=== PATIENT | female | born 1950 | race Caucasian/White ===

== ENCOUNTER 2018-11-02 17:19 | Inpatient (IN) | payer MEDICARE, MEDICAID ==
[~2018-11-02] VITALS: Ht 165.1 cm; Wt 90.6 kg
[2018-11-02] MEDS ORDERED: DILTIAZEM 125 MG in SODIUM CHLORIDE 0.9% 100 ML IV SCH ×2 (17:46→19:30)
[2018-11-02] MEDS ORDERED: ENOXAPARIN 100 MG/ML ONE (17:57)
[2018-11-02] MEDS ORDERED: ASPIRIN 81 MG TABLET CHEW ONE (17:57)
[2018-11-02] MEDS ORDERED: DILTIAZEM 5 MG/ML, 5ML ONE (17:57)
[2018-11-02] MEDS ORDERED: ASPIRIN 81 MG TABLET CHEW PO ONE (18:00)
[2018-11-02] MEDS ORDERED: ENOXAPARIN 100 MG/ML SQ SCH (18:00)
[2018-11-02] MEDS ORDERED: DILTIAZEM 5 MG/ML, 5ML IV ONE (18:00)
[2018-11-02] MEDS ORDERED: SODIUM CHLORIDE FLUSH 10ML SYR IVF ONE (18:00)
[2018-11-02 18:14] LABS: BASOPHILS # (AUTO) 0.21 x10^3/uL (0-0.1); BASOPHILS % (AUTO) 2 % (0-1); EOSINOPHILS # (AUTO) 0.35 x10^3/uL (0-0.4); EOSINOPHILS % (AUTO) 3 % (1-7); LYMPHOCYTES # (AUTO) 3.05 x10^3/uL (1-3.4); LYMPHOCYTES % (AUTO) 29 % (22-44); MD NO; MEAN CORPUSCULAR HGB CONC 32.7 g/dL (32.4-35.8); MEAN CORPUSCULAR VOLUME 101.1 fL (80-100); MEAN PLATELET VOLUME 7.7 fL (7.4-10.4); MONOCYTES # (AUTO) 0.75 x10^3/uL (0.2-0.8); MONOCYTES % (AUTO) 7 % (2-9); NEUTROPHILS % (AUTO) 58 % (42-75); PLATELET COUNT 283 x10^3/uL (130-400); RED BLOOD COUNT 4.28 x10^6/uL (3.82-5.3); RED CELL DISTRIBUTION WIDTH 13.7 % (9.6-15.2)
[2018-11-02 18:21] LABS: INTERNATIONAL NORMALIZED RATIO 1.02 (0.93-1.1); PROTHROMBIN TIME 10.7 Seconds (9.6-11.5)
[2018-11-02 18:26] LABS: ALANINE AMINOTRANSFERASE 19 U/L (12-78); ALBUMIN 3.4 g/dL (3.4-5.0); ANION GAP 8 mmol/L (5-15); CALCIUM 8.7 mg/dL (8.5-10.1); CHLORIDE 108 mmol/L (98-107); CREATININE 1.12 mg/dL (0.55-1.02); T4 (THYROXINE) 8.7 mcg/dL (4.8-13.9)
[2018-11-02] MEDS ORDERED: SODIUM CHLORIDE 0.9% 1,000ML IVBOLUS ONE ×2 (18:30→19:30)
[2018-11-02 18:31] LABS: ALKALINE PHOSPHATASE 76 U/L (45-117); BILIRUBIN,TOTAL 0.4 mg/dL (0.2-1.0); TOTAL PROTEIN 7.2 g/dL (6.4-8.2); TROPONIN I < 0.015 ng/mL (0.000-0.045)
[2018-11-02 18:36] LABS: THYROID STIMULATING HORMONE 0.837 mIU/L (0.358-3.740)
--- NOTE | 2018-11-02 18:53 | NUR ---
BP 95/50 AFTER 250 NS
--- NOTE | 2018-11-02 19:17 | NUR ---
LATE NOTE 1750. CARDIZEM DRIP INITIATED AT 10 ML HR. TO BE TITRATED UP TO 18 ML HR TO ACHIEVE HR UNDER 100 BPM.
--- NOTE | 2018-11-02 19:18 | NUR ---
CARDIZEM BACK DOWN TO 10 ML HR DUE TO BP PER MD DIRECTION WITH ANOTHER 500 ML NS BOLUS INITIATED.
[2018-11-02] MEDS ORDERED: ACETAMINOPHEN 325 MG TABLET PO PRN (19:30)
[2018-11-02] MEDS ORDERED: SODIUM CHLORIDE FLUSH 10ML SYR IVF PRN (19:30)
[2018-11-02] MEDS: SODIUM CHLORIDE 0.9% 1,000 ML IV SCH (22:04)
[2018-11-02 22:50] VITALS: BP 102/68
[2018-11-02 23:30] VITALS: BP 93/62
[2018-11-03] MEDS ORDERED: LISI5TAB7 PO (00:43)
[2018-11-03 01:15] VITALS: BP 88/61
[2018-11-03] MEDS ORDERED: SODIUM CHLORIDE 0.9% 1,000ML IVBOLUS ONE (02:00)
[2018-11-03 02:19] VITALS: BP 108/80
[2018-11-03] MEDS: HYDROcodone/APAP 10/325 MG TABLET PO PRN ×5 (02:23→23:12)
[2018-11-03] MEDS: SODIUM CHLORIDE 0.9% 1,000 ML IV SCH ×2 (02:24→10:19)
[2018-11-03 03:35] VITALS: BP 93/55
[2018-11-03] MEDS ORDERED: DIGOXIN 0.25 MG/ML, 2ML IVPush ONE ×4 (04:00→16:00)
[2018-11-03] MEDS ORDERED: ASPIRIN 325 MG TABLET EC PO SCH (06:00)
[2018-11-03 06:19] LABS: ANION GAP 8 mmol/L (5-15); CALCIUM 8.2 mg/dL (8.5-10.1); CHLORIDE 111 mmol/L (98-107)
[2018-11-03 06:24] LABS: CREATININE 0.85 mg/dL (0.55-1.02); TROPONIN I < 0.015 ng/mL (0.000-0.045)
[2018-11-03 06:28] LABS: HEMOGLOBIN A1C 5.7 % (4.2-6.3)
[2018-11-03] MEDS ORDERED: DILTIAZEM 125 MG in SODIUM CHLORIDE 0.9% 100 ML IV SCH ×2 (06:30→19:30)
[2018-11-03 07:30] VITALS: BP 90/66
[2018-11-03 08:19] LABS: BASOPHILS # (AUTO) 0.09 x10^3/uL (0-0.1); BASOPHILS % (AUTO) 1 % (0-1); EOSINOPHILS # (AUTO) 0.28 x10^3/uL (0-0.4); EOSINOPHILS % (AUTO) 4 % (1-7); LYMPHOCYTES # (AUTO) 2.87 x10^3/uL (1-3.4); LYMPHOCYTES % (AUTO) 37 % (22-44); MD NO; MEAN CORPUSCULAR HEMOGLOBIN 33.4 pg (27.0-34.8); MEAN CORPUSCULAR VOLUME 101.3 fL (80-100); MEAN PLATELET VOLUME 8.1 fL (7.4-10.4); MONOCYTES % (AUTO) 8 % (2-9); NEUTROPHILS # (AUTO) 4.02 x10^3/uL (1.8-6.8); NEUTROPHILS % (AUTO) 51 % (42-75); PLATELET COUNT 232 x10^3/uL (130-400); RED BLOOD COUNT 3.93 x10^6/uL (3.82-5.3); RED CELL DISTRIBUTION WIDTH 13.9 % (9.6-15.2)
[2018-11-03] MEDS ORDERED: METH750T2 PO (09:15)
[2018-11-03] MEDS ORDERED: HYDR-3245 PO (09:15)
[2018-11-03] MEDS ORDERED: METF-649 PO (09:15)
[2018-11-03] MEDS: APIXABAN 5 MG TABLET PO SCH ×2 (10:15→21:23)
[2018-11-03] MEDS: DILTIAZEM 120 MG CAP.ER.24H PO SCH (10:15)
[2018-11-03 13:49] VITALS: BP 99/66
[2018-11-03 19:42] VITALS: BP 102/68
[2018-11-04 03:24] VITALS: BP 107/76
[2018-11-04] MEDS: SODIUM CHLORIDE 0.9% 1,000 ML IV SCH (05:20)
[2018-11-04] MEDS: HYDROcodone/APAP 10/325 MG TABLET PO PRN (06:25)
[2018-11-04 07:00] LABS: ANION GAP 4 mmol/L (5-15); CALCIUM 8.4 mg/dL (8.5-10.1); CHLORIDE 111 mmol/L (98-107); CREATININE 0.78 mg/dL (0.55-1.02)
[2018-11-04] MEDS: APIXABAN 5 MG TABLET PO SCH (08:46)
[2018-11-04] MEDS: DILTIAZEM 120 MG CAP.ER.24H PO SCH (08:47)
[2018-11-04] MEDS ORDERED: DILT120C9 PO (08:48)
[2018-11-04] MEDS ORDERED: APIX5TAB PO (08:48)
[2018-11-04 09:44] VITALS: BP 103/67
== END 2018-11-04 12:10 | disposition home or self-care (01) | DRG 308 ==
LOC: ED 19:00 → EDIP 19:06 → ED 19:08 → 5SO 20:03 → DCLOUNGE 11-04 12:00
PROVIDERS: ADMIT Internal Medicine; ATTEND Internal Medicine
DX: I48.91 Unspecified atrial fibrillation (principal); N17.0 Acute kidney failure with tubular necrosis; G89.29 Other chronic pain; I10 Essential (primary) hypertension; I35.8 Other nonrheumatic aortic valve disorders; I49.3 Ventricular premature depolarization; M19.90 Unspecified osteoarthritis, unspecified site; F17.210 Nicotine dependence, cigarettes, uncomplicated; Z79.899 Other long term (current) drug therapy; Z82.49 Family history of ischemic heart disease and other diseases of the circulatory system; Z90.49 Acquired absence of other specified parts of digestive tract; Z98.51 Tubal ligation status
CPT/HCPCS: 36415; 71045; 80048; 80053; 83036; 83735; 83880; 84436; 84443; 84484; 85025; 85610; 85730; 93005; 93306; 96372; 96374; 96376; G0378; J1650; J1160; J7030